=== PATIENT | female | born 1995 | race African-American/Black ===

== ENCOUNTER 2024-02-14 04:04 | Inpatient (IN) | payer BC ==
[2024-02-08 12:18] VITALS: BMI 36.6
[2024-02-14] MEDS ORDERED: ceFAZolin SODIUM 1 GM VIAL ONE (08:00)
[2024-02-14] MEDS: GABAPENTIN 300 MG CAPSULE PO ONE (08:43)
[2024-02-14] MEDS ORDERED: ONDANSETRON 4 MG/2 ML VIAL IVPUSH PRN ×3 (09:35→13:00)
[2024-02-14] MEDS ORDERED: LACTATED RINGERS SOLUTION 1,000 ML IV SCH (09:45)
[2024-02-14] MEDS ORDERED: BUPIVACAINE HCL/PF 0.5% (5MG/ML) 10 ML VIAL ONE (10:28)
[2024-02-14] MEDS ORDERED: BUPIVACAINE HCL/PF 0.25% (2.5MG/ML) 10 ML VIAL ONE (10:29)
[2024-02-14] MEDS ORDERED: HEPARIN NA (PORCINE) 5,000 UNITS/ML 1ML VIAL ONE (10:29)
[2024-02-14] MEDS ORDERED: FENTANYL CITRATE/PF 50 MCG/ML VIAL ONE ×3 (10:32→14:18)
[2024-02-14] MEDS ORDERED: MIDAZOLAM HCL 2 MG/2 ML SINGLE DOSE VIAL ONE (10:33)
[2024-02-14] MEDS ORDERED: PROPOFOL 40 ML ONE ×2 (10:33→12:33)
[2024-02-14] MEDS ORDERED: SUCCINYLCHOLINE CHLORIDE 200 MG/10 ML SYRINGE ONE (10:33)
[2024-02-14] MEDS ORDERED: ROCURONIUM BROMIDE 50 MG/5 ML SYRINGE ONE (10:33)
[2024-02-14] MEDS: ceFAZolin SODIUM 1 GM VIAL IVPB ONE (10:47)
[2024-02-14] MEDS ORDERED: PROPOFOL 20 ML ONE (11:09)
[2024-02-14] MEDS ORDERED: oxyCODONE HCL 5 MG TABLET PO PRN (12:06)
[2024-02-14] MEDS ORDERED: BISACODYL 5 MG TABLET.DR (FP) PO PRN (12:06)
[2024-02-14] MEDS ORDERED: SUGAMMADEX SODIUM 200 MG/2 ML VIAL ONE (12:36)
[2024-02-14] MEDS: ACETAMINOPHEN 1000 MG/100 ML BAG IVPB ONE (14:30)
[2024-02-14] MEDS: CEFAZOLIN SODIUM 2 GM in DEXTROSE 5%-WATER 100 ML IVPB ONE (14:31)
[2024-02-14] MEDS: LACTATED RINGERS SOLUTION 1,000 ML IV SCH (15:33)
[2024-02-14] MEDS: CEFAZOLIN 1 GM in DEXTROSE 5%-WATER - 50 ML IVPB SCH (17:33)
[2024-02-15] MEDS: IBUPROFEN 800 MG/8 ML IJ IVPB PRN (00:07)
[2024-02-15] MEDS: oxyCODONE HCL 5 MG TABLET PO PRN (05:26)
[2024-02-15] MEDS: DOCUSATE SODIUM 100 MG CAPSULE (FP) PO PRN (05:26)
[2024-02-15 07:55] LABS: HEMATOCRIT 32.4 % (32.4-45.2); HEMOGLOBIN 10.7 GM/dL (10.7-15.3); MCH 26.7 pg (25.7-33.7); MEAN CELL VOLUME 80.9 fl (80-96); MEAN PLT VOLUME 8.6 fl (7.5-11.1); PLATELET COUNT 209 10^3/uL (134-434); RBC 4.01 M/mm3 (3.60-5.2); RDW 15.1 % (11.6-15.6); WHITE BLOOD COUNT 15.7 K/mm3 (4.0-10.0)
[2024-02-15 08:05] LABS: POTASSIUM 4.1 mmol/L (3.5-5.1)
[2024-02-15 08:15] LABS: BLOOD UREA NITROGEN 7.8 mg/dL (7-18); CALCIUM 8.2 mg/dL (8.5-10.1)
[2024-02-15 08:18] LABS: CREATININE 0.7 mg/dL (0.55-1.3)
[2024-02-15] MEDS: SIMETHICONE 80 MG TAB.CHEW (FP) PO PRN (10:18)
[2024-02-15] MEDS: ACETAMINOPHEN 500 MG TABLET (FP) PO SCH (13:28)
[2024-02-16 11:36] LABS: BASO % 0.2 % (0-2.0); EOS % 0.1 % (0-4.5); HEMATOCRIT 32.8 % (32.4-45.2); HEMOGLOBIN 10.8 GM/dL (10.7-15.3); LYMPH % 10.2 % (8-40); MCH 26.6 pg (25.7-33.7); MEAN CELL VOLUME 80.6 fl (80-96); MEAN PLT VOLUME 8.6 fl (7.5-11.1); MONO % 7.7 % (3.8-10.2); NEUT % 81.8 % (42.8-82.8); PLATELET COUNT 211 10^3/uL (134-434); RBC 4.07 M/mm3 (3.60-5.2); RDW 15.2 % (11.6-15.6); WHITE BLOOD COUNT 14.4 K/mm3 (4.0-10.0)
[2024-02-16 11:50] VITALS: BP 125/77; PULSE 96; RESP 17; TEMP 99.2
== END 2024-02-16 14:35 | disposition home or self-care (01) | DRG 519 ==
LOC: J2C 04:04 → J3W 15:21
PROVIDERS: ADMIT Specialist; ATTEND Specialist
PROC: 0UB90ZZ Excision of Uterus, Open Approach (ICD-10-PCS; principal; 2024-02-14 10:00)
DX: D25.9 Leiomyoma of uterus, unspecified (principal); R10.2 Pelvic and perineal pain
CPT/HCPCS: 36415; 80048; 81025; 85025; 85027; 86850; 86900; 86901; 88305-TC; 94760; J1644

== ENCOUNTER 2024-02-19 09:58 | Emergency (ER) | payer BC ==
[2024-02-19 10:07] VITALS: BP 127/65; PULSE 93; RESP 18; TEMP 98; BMI 36.6
[2024-02-19] MEDS ORDERED: diphenhydrAMINE HCL 25 MG CAPSULE (FP) PO ONE (10:39)
[2024-02-19] MEDS ORDERED: DEXAMETHASONE SOD PHOSPHATE 10 MG/1 ML VIAL ONE (10:40)
[2024-02-19] MEDS ORDERED: FAMOTIDINE 20 MG TABLET ONE (10:40)
[2024-02-19] MEDS ORDERED: IBUPROFEN 600 MG TABLET (FP) PO ONE (10:46)
[2024-02-19] MEDS: diphenhydrAMINE HCL 50 MG CAPSULE PO ONE (10:50)
[2024-02-19] MEDS: DEXAMETHASONE 4 MG TABLET (FP) PO ONE (10:50)
[2024-02-19] MEDS: FAMOTIDINE 20 MG TABLET PO ONE (10:50)
[2024-02-19] MEDS: IBUPROFEN 600 MG TABLET (FP) PO ONE (10:55)
[2024-02-19] MEDS ORDERED: predniSONE 10 MG TABLET (UD) ONE (12:47)
[2024-02-19] MEDS ORDERED: predniSONE 20 MG TABLET (UD) ONE (12:48)
[2024-02-19] MEDS: predniSONE 20 MG TABLET (UD) PO ONE (13:10)
[2024-02-20] MEDS ORDERED: predniSONE 20 MG TABLET (UD) PO ONE ×2 (12:03→12:46)
== END 2024-02-19 13:45 | disposition home or self-care (01) ==
LOC: JERFT 09:58
DX: T78.40XA Allergy, unspecified, initial encounter (principal); R22.0 Localized swelling, mass and lump, head; T78.3XXA Angioneurotic edema, initial encounter
CPT/HCPCS: 99283-25

== ENCOUNTER 2024-03-17 15:00 | Emergency (ER) | payer BC ==
[2024-03-17 15:08] VITALS: BP 129/84; PULSE 87; RESP 18; TEMP 98.7; BMI 36.6
[2024-03-17] MEDS ORDERED: ACETAMINOPHEN INJECTION 100 ML IVPB ONE (16:08)
[2024-03-17 16:36] LABS: PH,URINE 6.5 (5.0-8.0); URINE APPEARANCE CLEAR; URINE BILIRUBIN NEGATIVE (NEGATIVE); URINE COLOR YELLOW; URINE GLUCOSE (UA) NEGATIVE (NEGATIVE); URINE KETONE NEGATIVE (NEGATIVE); URINE LEUK ESTERASE NEGATIVE (NEGATIVE); URINE NITRITE NEGATIVE (NEGATIVE); URINE PROTEIN NEGATIVE (NEGATIVE); URINE UROBILINOGEN 0.2 mg/dL (0.2-1.0)
[2024-03-17] MEDS: ACETAMINOPHEN 1000 MG/100 ML BAG IVPB ONE (16:37)
[2024-03-17 16:42] LABS: BASO % 0.5 % (0-2.0); EOS % 3.5 % (0-4.5); HEMATOCRIT 39.7 % (32.4-45.2); HEMOGLOBIN 12.8 GM/dL (10.7-15.3); LYMPH % 42.3 % (8-40); MCH 26.5 pg (25.7-33.7); MCHC 32.3 g/dl (32.0-36.0); MEAN CELL VOLUME 82.1 fl (80-96); MEAN PLT VOLUME 8.8 fl (7.5-11.1); MONO % 9.6 % (3.8-10.2); NEUT % 44.1 % (42.8-82.8); PLATELET COUNT 232 10^3/uL (134-434); RBC 4.84 M/mm3 (3.60-5.2); RDW 14.9 % (11.6-15.6); WHITE BLOOD COUNT 6.7 K/mm3 (4.0-10.0)
[2024-03-17 16:53] LABS: POTASSIUM 3.9 mmol/L (3.5-5.1)
[2024-03-17 16:56] LABS: ALBUMIN 3.6 g/dl (3.4-5.0); BLOOD UREA NITROGEN 9.3 mg/dL (7-18); CALCIUM 9.4 mg/dL (8.5-10.1)
[2024-03-17 16:59] LABS: CREATININE 0.6 mg/dL (0.55-1.3)
[2024-03-17 17:00] LABS: BILIRUBIN,TOTAL 0.3 mg/dL (0.2-1); TOT PROT 6.9 g/dl (6.4-8.2)
== END 2024-03-17 18:58 | disposition home or self-care (01) ==
LOC: JER 15:00
PROC: 3E030NZ Introduction of Analgesics, Hypnotics, Sedatives into Peripheral Vein, Open Approach (ICD-10-PCS; principal; 2024-03-17)
DX: R10.32 Left lower quadrant pain (principal); M54.50 Low back pain, unspecified
CPT/HCPCS: 36415; 74177-TC; 80053; 81003; 84703; 85025; 87086; 99285-25; J0131; Q9967